=== PATIENT | male | born 1955 | race Caucasian/White ===

== ENCOUNTER 2016-12-21 09:09 | Emergency (ER) | payer OTHER ==
[2016-12-21 09:27] VITALS: BP 141/100; PULSE 96; RESP 18; TEMP 98; O2SAT 97
[2016-12-21] MEDS ORDERED: CARBAMIDE PEROXIDE 15 ML BOTTLE RTEAR ONE (09:33)
--- NOTE | 2016-12-21 09:38 | UCPHY ---
H & P Time Seen by Provider: 12/21/16 09:21 Patient Type: New HPI/ROS: This patient complains of chest congestion and cough. The cough is productive of green sputum. His symptoms started last week and he reports subjective fevers associated with this. He also reports mild dyspnea on exertion since the onset of the illness but none normally. He notes no exacerbating or alleviating factors. ROS: He has nasal congestion in addition but no feeling of sinus pain. No other HEENT complaints. No constitutional complaints other than subjective fever. Pulmonary: No pleuritic pain. No respiratory distress. Cardiovascular : No lightheadedness or leg swelling. Integumentary: No skin rash. 7 point ROS is otherwise negative. Past Medical/Surgical History: Otherwise healthy Smoking Status: Never smoked Physical Exam: Physical Exam Vital signs are normal. General: No acute distress HEENT: Nose: Green discharge. No sinus tenderness to percussion. Oropharynx: No posterior pharyngeal erythema, exudates or dysphonia. Ears: Right external canal is obscured by cerumen impaction. Left external canal as minimal cerumen and a clear TM. Eyes: Pupils equal and react to light. Extraocular motions are intact. Neck: Supple Lungs: Clear to auscultation with exception of mild expiratory wheeze. Minimal rhonchi. No rales. No respiratory distress. Cardiac: Regular rate and rhythm with no murmur gallop or rub Skin: No rash or pallor. Neuro: Alert and oriented x3 with no sensorimotor deficits. Initial differential diagnosis: Bronchitis-viral versus bacterial versus URI with cough and mild reactive airway disease. Influenza Constitutional: Initial Vital Signs Temperature (C) 36.6 C 12/21/16 09:21 Heart Rate 96 12/21/16 09:21 Respiratory Rate 18 12/21/16 09:21 Blood Pressure 141/100 H 12/21/16 09:21 O2 Sat (%) 97 12/21/16 09:21 O2 Delivery Mode Room Air Allergies/Adverse Reactions: No Known Allergies Allergy (Unverified 12/21/16 09:21) Home Medications: Medication Instructions Recorded Albuterol Hfa Anes Only [Proair 2 puffs IH Q4 PRN #1 mdi 12/21/16 Hfa Icu (*)] Azithromycin [Zithromax] 250 mg PO DAILY #6 tab 02/09/17 MDM/Departure - MDM Medications Given: Discontinued Medications Carbamide Peroxide (Debrox) 5 drop RTEAR EDNOW ONE Stop: 12/21/16 09:34 Last Admin: 12/21/16 09:52 Dose: 2 drop Cerumenex to right ear ED Course/Re-evaluation: The ear was irrigated with removal of cerumen. On repeat examination of the right ear: External canal with minimal erythema attributable to this previous cerumen and a clear TM. there is no otitis media or other concerning findings - Depart Disposition: Home, Routine, Self-Care Clinical Impression: Impacted cerumen of right ear Acute bronchitis Qualifiers: Bronchitis organism: unspecified organism Qualifier Code: (J20.9) Acute bronchitis, unspecified Condition: Good Instructions: Acute Bronchitis (ED) Additional Instructions: Diagnoses: 1. Acute bronchitis 2. Cerumen impaction Plan: Humidifier Albuterol inhaler for cough, wheeze or shortness of breath Zithromax antibiotic Guaifenesin Return for any significant worsening despite the treatment plan Prescriptions: Albuterol Hfa Anes Only [Proair Hfa Icu (*)] 2 puffs IH Q4 PRN #1 mdi PRN Reason: Wheezing Azithromycin [Zithromax] 250 mg PO DAILY #6 tab Referrals: NONE *PRIMARY CARE P,. [Primary Care Provider] - As per Instructions - PQRS PQRS Measurement: NA
== END 2016-12-21 10:16 | disposition home or self-care (01) ==
LOC: CED 09:09
PROC: 3E1B78Z Irrigation of Ear using Irrigating Substance, Via Natural or Artificial Opening (ICD-10-PCS; principal; 2016-12-21)
DX: H61.21 Impacted cerumen, right ear (principal); J20.9 Acute bronchitis, unspecified
CPT/HCPCS: 87400-PO; G0463-PO